=== PATIENT | male | born 1955 | race Caucasian/White ===

== ENCOUNTER → 2016-09-30 | Outpatient (CLI) | payer BC ==
[~2016-09-30] MED LIST: AMARYL4 MG PO; AMITRIPTYLINE H25 M1 PO; ATORVASTATIN; BACTRIM DS 8001 TAB PO; CRESTOR5 MG PO; CYMBALTA 30MG30 MG PO; DESYREL DIVIDO150 M1 PO; ESCITALOPRAM; GLUCOPHAGE500 MG/TAB PO; GLYBURIDE MICRON3 MG PO; LEVITRA20 MG PO; NORCO 325 MG-7.1 TAB PO; PROTONIX I40 MG/VIAL PO; SYNTHROID0.05 MG/TA PO; VICODIN 5/5001 UDTAB PO; VICTOZA6 MG/ML SC; WELLBUTRIN XL150 MG PO; [UNRECOGNIZED DRUG - OTHER]
== END ==
LOC: BHSO 15:37
DX: F33.42 Major depressive disorder, recurrent, in full remission (principal)

== ENCOUNTER → 2017-03-15 | Outpatient (CLI) | payer BC | LOC: BHSO 15:29 | DX: F33.41 Major depressive disorder, recurrent, in partial remission (principal) ==

== ENCOUNTER → 2017-10-24 | Outpatient (CLI) | payer BC | LOC: BHSO 11:41 | DX: F06.32 Mood disorder due to known physiological condition with major depressive-like episode (principal) | CPT/HCPCS: G0463 ==

== ENCOUNTER → 2017-12-08 | Outpatient (CLI) | payer BC ==
[~2017-12-08] MED LIST changes: +BELSOMRA10 MG PO; +COLACE 100100 MG/CAP PO; +COMPAZINE 110 MG/TAB PO; +GLUCOTROL 5M5 MG/TAB PO; +LINZESS290CAP PO; +PROBIOTIC FORMU1 CAP PO; +PROTONIX 40MG T40 MG PO; +VICTOZA6 MG/ML SQ; +WELLBUTRIN XL300 M1 PO; +ZOLOFT 100MG100 MG PO
== END ==
LOC: COL.RAD 07:23
DX: K58.9 Irritable bowel syndrome, unspecified (principal); B19.10 Unspecified viral hepatitis B without hepatic coma
CPT/HCPCS: A9541

== ENCOUNTER 2017-12-09 06:40 | Day surgery (SDC) | payer BC ==
[~2017-12-09] VITALS: Ht 175.3 cm; Wt 70.0 kg
[~2017-12-09 06:40] MED LIST changes: -BELSOMRA10 MG PO; -COLACE 100100 MG/CAP PO; -COMPAZINE 110 MG/TAB PO; -GLUCOTROL 5M5 MG/TAB PO; -LINZESS290CAP PO; -PROBIOTIC FORMU1 CAP PO; -PROTONIX 40MG T40 MG PO; -VICTOZA6 MG/ML SQ; -WELLBUTRIN XL300 M1 PO; -ZOLOFT 100MG100 MG PO
[2017-12-09] MEDS ORDERED: WELLBUTRIN XL300 M1 PO (06:58)
[2017-12-09] MEDS ORDERED: GLUCOTROL 5M5 MG/TAB PO (06:59)
[2017-12-09] MEDS ORDERED: SYNTHROID0.05 MG/TA PO (07:00)
[2017-12-09] MEDS ORDERED: ZOLOFT 100MG100 MG PO (07:00)
[2017-12-09] MEDS ORDERED: LINZESS290CAP PO (07:01)
[2017-12-09] MEDS ORDERED: PROTONIX 40MG T40 MG PO (07:01)
[2017-12-09] MEDS ORDERED: COLACE 100100 MG/CAP PO (07:02)
[2017-12-09] MEDS ORDERED: PROBIOTIC FORMU1 CAP PO (07:02)
[2017-12-09] MEDS ORDERED: VICTOZA6 MG/ML SQ (07:04)
[2017-12-09] MEDS ORDERED: BELSOMRA10 MG PO (07:04)
[2017-12-09 07:05] VITALS: BP 122/91; PULSE 88; TEMP 98.2
[2017-12-09] MEDS ORDERED: COMPAZINE 110 MG/TAB PO (07:05)
[2017-12-09 08:15] VITALS: BP 124/77; PULSE 77; TEMP 98.4
[2017-12-09 08:30] VITALS: BP 108/69; PULSE 70
[2017-12-09 08:45] VITALS: BP 112/83; PULSE 72
== END 2017-12-09 09:05 | disposition home or self-care (01) ==
LOC: SDCO 06:40
DX: K58.1 Irritable bowel syndrome with constipation (principal); K21.9 Gastro-esophageal reflux disease without esophagitis; R11.2 Nausea with vomiting, unspecified; K29.30 Chronic superficial gastritis without bleeding; E11.9 Type 2 diabetes mellitus without complications; Z79.84 Long term (current) use of oral hypoglycemic drugs; I10 Essential (primary) hypertension; K75.81 Nonalcoholic steatohepatitis (NASH); I49.9 Cardiac arrhythmia, unspecified; F32.9 Major depressive disorder, single episode, unspecified
CPT/HCPCS: J2250; J3010; J7030

== ENCOUNTER → 2018-01-26 | Outpatient (CLI) | payer BC ==
[~2018-01-26] MED LIST changes: +BELSOMRA10 MG PO; +COLACE 100100 MG/CAP PO; +COMPAZINE 110 MG/TAB PO; +FLEXERIL 1010 MG/TAB PO; +GLUCOTROL 5M5 MG/TAB PO; +LINZESS290CAP PO; +NORCO 325 MG-51 TAB PO; +PROBIOTIC FORMU1 CAP PO; +PROTONIX 40MG T40 MG PO; +VICTOZA6 MG/ML SQ; +WELLBUTRIN XL300 M1 PO; +ZOLOFT 100MG100 MG PO
== END ==
LOC: BHSO 14:14
DX: F33.42 Major depressive disorder, recurrent, in full remission (principal)
CPT/HCPCS: G0463

== ENCOUNTER 2018-01-27 20:49 | Emergency (ER) | payer BC ==
[~2018-01-27] VITALS: Ht 172.7 cm; Wt 77.3 kg
[~2018-01-27 20:49] MED LIST changes: -FLEXERIL 1010 MG/TAB PO; -NORCO 325 MG-51 TAB PO
[2018-01-27 20:52] VITALS: TEMP 97.9
[2018-01-27 21:31] LABS: HEMATOCRIT 42.4 % (42.0-52.0); HEMOGLOBIN 14.4 g/dl (13.5-18.0); MEAN CELL VOLUME 89 fl (80.0-100.0); MEAN CORPUSCULAR HEMOGLOBIN 30 pg (27.0-31.0); MEAN CORPUSCULAR HGB CONC 34 g/dl (33.0-37.0); MEAN PLATELET VOLUME 9.3 fl (7.4-10.4); PLATELET COUNT 167 K/mm3 (130-400); RED BLOOD COUNT 4.78 M/mm3 (4.20-5.60); REDCELL DISTRIBUTION WIDTH-CV 12.2 % (11.5-14.5)
[2018-01-27 21:42] LABS: ALANINE AMINOTRANSFERASE 48 U/L (21-72); ALBUMIN 4.4 gm/dL (3.5-5.0); ALKALINE PHOSPHATASE 61 U/L (50-136); ANION GAP 11 mmol/L (7-16); AST,SGOT 44 U/L (15-37); BILIRUBIN,TOTAL 0.4 mg/dL (0.0-1.0); BLOOD UREA NITROGEN 12 mg/dL (9-20); CALCIUM 9.2 mg/dL (8.4-10.2); CARBON DIOXIDE 28 mmol/L (22-30); CHLORIDE 100 mmol/L (98-107); CREATININE, serum 0.99 mg/dL (0.66-1.25); GLUCOSE 120 mg/dL (74-106); POTASSIUM 4.6 mmol/L (3.4-5.0); SODIUM 139 mmol/L (137-145); TOTAL PROTEIN 7.2 gm/dL (6.4-8.2)
[2018-01-27 21:46] LABS: ALCOHOL(ethanol),MEDICAL < 10 mg/dL
[2018-01-27] MEDS ORDERED: NORCO 325 MG-51 TAB PO (22:27)
[2018-01-27] MEDS ORDERED: FLEXERIL 1010 MG/TAB PO (22:27)
[2018-01-27 22:33] VITALS: BP 134/74; PULSE 76
== END 2018-01-27 22:58 | disposition home or self-care (01) ==
LOC: COL.ER 20:49
PROVIDERS: Physician Assistant
DX: S40.011A Contusion of right shoulder, initial encounter (principal); M62.838 Other muscle spasm; Z88.0 Allergy status to penicillin; Z79.84 Long term (current) use of oral hypoglycemic drugs; W01.10XA Fall on same level from slipping, tripping and stumbling with subsequent striking against unspecified object, initial encounter; Y92.009 Unspecified place in unspecified non-institutional (private) residence as the place of occurrence of the external cause

== ENCOUNTER → 2018-08-10 | Outpatient (CLI) | payer BC ==
[~2018-08-10] MED LIST changes: +FLEXERIL 1010 MG/TAB PO; +NORCO 325 MG-51 TAB PO
== END ==
LOC: BHSO 15:38
DX: F33.42 Major depressive disorder, recurrent, in full remission (principal)
CPT/HCPCS: G0463

== ENCOUNTER → 2019-03-07 | Outpatient (CLI) | payer BC | LOC: BHSO 08:17 | DX: F33.42 Major depressive disorder, recurrent, in full remission (principal) | CPT/HCPCS: G0463 ==

== ENCOUNTER → 2019-12-10 | Outpatient (CLI) | payer MEDICARE, BC | LOC: BHSO 09:45 | DX: F33.42 Major depressive disorder, recurrent, in full remission (principal) | CPT/HCPCS: G0463 ==

== ENCOUNTER → 2020-03-10 | Outpatient (CLI) | payer MEDICARE, BC | LOC: BHSO 09:51 | DX: F33.42 Major depressive disorder, recurrent, in full remission (principal) | CPT/HCPCS: G0463 ==

== ENCOUNTER 2020-11-21 08:03 | Day surgery (SDC) | payer MEDICARE, BC ==
[~2020-11-21] VITALS: Ht 172.7 cm; Wt 86.6 kg
[2020-11-21] MEDS ORDERED: REQUIP 0.5MG0.5 MG PO (08:30)
[2020-11-21] MEDS ORDERED: AMBIEN 10MG10 MG PO (08:30)
[2020-11-21] MEDS ORDERED: NEURONTIN600 MG/TAB PO (08:31)
[2020-11-21] MEDS ORDERED: CRESTOR20 MG PO (08:32)
[2020-11-21] MEDS ORDERED: FARXIGA10 PO (08:32)
[2020-11-21] MEDS ORDERED: NOVLOG SQ (08:33)
[2020-11-21] MEDS ORDERED: ACTOS30 MG PO (08:34)
[2020-11-21] MEDS ORDERED: NATURAL IRON65 MG PO (08:35)
[2020-11-21] MEDS ORDERED: COLACE 100100 MG/CAP PO (08:35)
[2020-11-21 08:50] VITALS: BP 126/78; PULSE 66; TEMP 98
[2020-11-21 10:00] VITALS: BP 127/71; PULSE 61
--- NOTE | 2020-11-21 10:00 | NUR ---
Patient checked into [facility] Rm3 via endo staff nurse.
--- NOTE | 2020-11-21 10:10 | NUR ---
Patient given juice and muffin. Vitals stable. Patient's spouse at chair side.
[2020-11-21 10:15] VITALS: BP 134/72; PULSE 64
--- NOTE | 2020-11-21 10:15 | NUR ---
Dr Ravi into see patient at this time to go over results.
[2020-11-21 10:30] VITALS: BP 134/75; PULSE 60
--- NOTE | 2020-11-21 10:30 | NUR ---
Patient tolerated food and drink without any nausea or vomiting. Vitals stable.
--- NOTE | 2020-11-21 11:00 | NUR ---
Dismissal instructions gone over with patient and patient's spouse. Both verbalize understanding and all questions answered.
--- NOTE | 2020-11-21 11:05 | NUR ---
Patient discharged to private vehicle at patient enterance via wheelchair without any complications. Patient and family leave thanking staff for services.
== END 2020-11-21 11:05 | disposition home or self-care (01) ==
LOC: SDCO 08:03
DX: K21.9 Gastro-esophageal reflux disease without esophagitis (principal); K31.7 Polyp of stomach and duodenum; K92.1 Melena; K58.1 Irritable bowel syndrome with constipation; D50.9 Iron deficiency anemia, unspecified; E78.5 Hyperlipidemia, unspecified; G47.33 Obstructive sleep apnea (adult) (pediatric); M19.90 Unspecified osteoarthritis, unspecified site; G25.81 Restless legs syndrome; E11.9 Type 2 diabetes mellitus without complications; E03.9 Hypothyroidism, unspecified; M10.9 Gout, unspecified; F32.9 Major depressive disorder, single episode, unspecified; F41.9 Anxiety disorder, unspecified; Z98.52 Vasectomy status; Z99.89 Dependence on other enabling machines and devices; Z79.890 Hormone replacement therapy; Z79.899 Other long term (current) drug therapy; Z79.4 Long term (current) use of insulin; Z82.49 Family history of ischemic heart disease and other diseases of the circulatory system; Z80.42 Family history of malignant neoplasm of prostate
CPT/HCPCS: J2704; J7030

== ENCOUNTER 2021-07-24 22:04 | Observation (INO) | payer MEDICARE, BC ==
[~2021-07-24] VITALS: Ht 172.7 cm; Wt 82.6 kg
[~2021-07-24 22:04] MED LIST changes: +ACTOS30 MG PO; +AMBIEN 10MG10 MG PO; +CRESTOR20 MG PO; +FARXIGA10 PO; +NATURAL IRON65 MG PO; +NEURONTIN600 MG/TAB PO; +NOVLOG SQ; +REQUIP 0.5MG0.5 MG PO
[2021-07-24 23:04] LABS: BASO % 0.7 % (0.0-2.0); EOS # 0.2 K/mm3 (0.0-0.7); EOS % 3.5 % (0.0-4.0); GRAN # 2.6 K/mm3 (1.4-6.5); GRAN % 57.8 % (42.2-75.2); HEMOGLOBIN 17.5 g/dl (13.5-18.0); LYMPH # 1.3 K/mm3 (1.2-3.4); LYMPH % 28.2 % (20.0-51.0); MEAN CELL VOLUME 84 fl (80.0-100.0); MEAN CORPUSCULAR HEMOGLOBIN 27 pg (27-31); MEAN CORPUSCULAR HGB CONC 33 g/dl (33.0-37.0); MEAN PLATELET VOLUME 8.9 fl (7.4-10.4); MONO # 0.4 K/mm3 (0.1-0.6); MONO % 9.6 % (1.7-9.3); PLATELET COUNT 154 K/mm3 (130-400); RED BLOOD COUNT 6.38 M/mm3 (4.20-5.60); REDCELL DISTRIBUTION WIDTH-CV 19.2 % (11.5-14.5)
[2021-07-24 23:10] LABS: HEMATOCRIT 53.3 % (42.0-52.0)
[2021-07-24 23:24] LABS: ALANINE AMINOTRANSFERASE 33 U/L (0-55); ALBUMIN 4.5 gm/dL (3.4-4.8); ALKALINE PHOSPHATASE 64 U/L (40-150); ANION GAP 13 mmol/L (7-16); AST,SGOT 33 U/L (5-34); BILIRUBIN,TOTAL 0.5 mg/dL (0.2-1.2); BLOOD UREA NITROGEN 11 mg/dL (8-26); CALCIUM 9.5 mg/dL (8.4-10.2); CARBON DIOXIDE 23 mmol/L (23-31); CHLORIDE 105 mmol/L (98-107); CREATININE, serum 1.13 mg/dL (0.72-1.25); GLUCOSE 222 mg/dL (70-99); POTASSIUM 3.8 mmol/L (3.5-4.5); SODIUM 141 mmol/L (136-145); TOTAL PROTEIN 7.6 gm/dL (6.2-8.1)
[2021-07-24 23:28] LABS: ALCOHOL(ethanol),MEDICAL < 10 mg/dL (0-10)
[2021-07-24 23:30] LABS: TROPONIN-I < 0.010 ng/mL (0.00-0.033)
[2021-07-24 23:55] LABS: TRICYCLIC ANTIDEPRESS URINE NEGATIVE
[2021-07-25 00:28] LABS: COLLECTION METHOD CLEAN CATCH
[2021-07-25 00:34] LABS: PH 6 (5-8); SQUAMOUS EPITHELIAL None Seen /hpf (0-10); URINE APPEARANCE Clear (CLEAR/HAZY); URINE BACTERIA None Seen /hpf (NONE SEEN); URINE BILIRUBIN Negative (NEGATIVE); URINE BLOOD 1+ (NEGATIVE); URINE COLOR Straw (YELLOW); URINE GLUCOSE 3+ (NEGATIVE); URINE KETONE Negative (NEGATIVE); URINE LEUKOCYTE ESTERASE Negative (NEGATIVE); URINE NITRATE Negative (NEGATIVE); URINE PROTEIN(semi-quant) Negative (NEGATIVE); URINE RBC 0-2 /hpf (0-2); URINE UROBILINOGEN Negative (NEGATIVE)
[2021-07-25] MEDS ORDERED: FLOMAX 0.40.4 MG/CAP PO (00:53)
[2021-07-25] MEDS ORDERED: GLUCOPHAGE XR500 M1 PO (00:54)
[2021-07-25] MEDS ORDERED: WELLBUTRIN SR150 M1 PO (00:57)
[2021-07-25] MEDS ORDERED: WELLBUTRIN XL150 MG PO (00:58)
[2021-07-25] MEDS ORDERED: NOVOLOG FLEX100 U/ML SQ (01:01)
[2021-07-25 01:51] LABS: MAGNESIUM 2.1 mg/dL (1.6-2.6); PHOSPHOROUS 3.2 mg/dL (2.3-4.7)
[2021-07-25 02:11] LABS: TSH w REFLEX 3.48 uIU/mL (0.350-4.940)
[2021-07-25 03:18] VITALS: BP 150/86; PULSE 62; TEMP 98
--- NOTE | 2021-07-25 07:15 | NUR ---
PT ARRIVED TO MEDICAL FLOOR [id number] TO [id number]. PT CAME IN FOR ALT. MENTAL STATUS, HOWEVER PT WAS A&O X4 FOR ME. PT COMPLAINED OF FEELING LOOPY AND UNABLE TO REMEMBER WHAT HAPPEN LAST NIGHT. VSS, O2 RA. PT DENIES CHEST PAIN, SOB, N,V,D, GENERAL PAIN OR DIZZINESS. PT ALSO UP TO THE RESTROOM, BUT HIS GAIT WAS VERY UNSTEADY. PT PASSED HIS NEURO-CHECKS. ADMISSION ASSESSMENT AND MED REC COMPLETE. PT ORIENTED TO ROOM AND HOSPITAL POLICY, I'M NOT SURE HE WILL BE ABLE TO REMEMBER THOUGH. PT VERBALIZED UNDERSTANDING. WILL CHECK ON PT OFTEN. PT EXPRESSED NO OTHER NEEDS AT THIS TIME. CALL LIGHT WITHIN REACH.
[2021-07-25 07:40] VITALS: BP 152/83; PULSE 59; TEMP 98.1
--- NOTE | 2021-07-25 08:35 | NUR ---
Patient laying in bed upon entering the room. Answered all orientation questions correctly (Location, president, name and ). is at the bedside and says the patient is back to his baseline and is much better than when she brought him in last night. Patient asked why he was here and does not remember anything that happened last night. Reports that he slept well and denies any pain.
[2021-07-25 09:13] LABS: BASO % 0.6 % (0.0-2.0); EOS # 0.2 K/mm3 (0.0-0.7); EOS % 3.6 % (0.0-4.0); GRAN # 3.1 K/mm3 (1.4-6.5); GRAN % 61.5 % (42.2-75.2); HEMOGLOBIN 17.6 g/dl (13.5-18.0); LYMPH # 1.3 K/mm3 (1.2-3.4); LYMPH % 25.4 % (20.0-51.0); MEAN CELL VOLUME 85 fl (80.0-100.0); MEAN CORPUSCULAR HEMOGLOBIN 28 pg (27-31); MEAN CORPUSCULAR HGB CONC 33 g/dl (33.0-37.0); MEAN PLATELET VOLUME 9.8 fl (7.4-10.4); MONO # 0.4 K/mm3 (0.1-0.6); MONO % 8.7 % (1.7-9.3); PLATELET COUNT 166 K/mm3 (130-400); RED BLOOD COUNT 6.35 M/mm3 (4.20-5.60); REDCELL DISTRIBUTION WIDTH-CV 19.5 % (11.5-14.5)
[2021-07-25 09:17] LABS: HEMATOCRIT 54.2 % (42.0-52.0)
--- NOTE | 2021-07-25 10:46 | NUR ---
SW met with patient to complete intake. Patient states that he lives in [place] with is Nadiya [phone]. Patient states that he does not utilize DME and is independent with ADL's. Patient provides his PCP is Dr. Joel, pharmacy is [facility]. Patient provides that he does not have anyone specifically appointed as his DPOA and does not wish to do so at this current time. Patient's plan is to return to his home up on discharge and has no questions or concerns with doing so. SW will continue to follow. DC plan: home
[2021-07-25 11:45] VITALS: BP 151/96; PULSE 61; TEMP 98.1
--- NOTE | 2021-07-25 12:59 | NUR ---
Hooker Operator visited briefly with patient while spouse was in room. Nothing else needed at this time.
--- NOTE | 2021-07-25 15:08 | NUR ---
Patient discharged home w/ . Escorted out by PCT. Patient stable, A&Ox4. IV and telemetry discontinued by this RN.
== END 2021-07-25 14:40 | disposition home or self-care (01) ==
LOC: COL.ER 22:04 → MEDICAL 07-25 01:21
PROVIDERS: Emergency Medicine; Nurse Practitioner Family
DX: G92.8 Other toxic encephalopathy (principal); T42.6X1A Poisoning by other antiepileptic and sedative-hypnotic drugs, accidental (unintentional), initial encounter; E78.5 Hyperlipidemia, unspecified; E11.40 Type 2 diabetes mellitus with diabetic neuropathy, unspecified; E03.9 Hypothyroidism, unspecified; G25.81 Restless legs syndrome; G47.00 Insomnia, unspecified; N40.0 Benign prostatic hyperplasia without lower urinary tract symptoms; M19.90 Unspecified osteoarthritis, unspecified site; G89.29 Other chronic pain; F32.A Depression, unspecified; Z79.84 Long term (current) use of oral hypoglycemic drugs; Z79.899 Other long term (current) drug therapy; Z79.890 Hormone replacement therapy; Z20.822 Contact with and (suspected) exposure to COVID-19
CPT/HCPCS: G0378; J1815; J7030

== ENCOUNTER 2022-03-14 23:22 | Emergency (ER) | payer MEDICARE, BC ==
[~2022-03-14] VITALS: Ht 172.7 cm; Wt 82.7 kg
[~2022-03-14 23:22] MED LIST changes: +FLOMAX 0.40.4 MG/CAP PO; +GLUCOPHAGE XR500 M1 PO; +NOVOLOG FLEX100 U/ML SQ; +WELLBUTRIN SR150 M1 PO
[2022-03-14 23:50] LABS: BASO # 0.1 K/mm3 (0.0-0.2); BASO % 0.9 % (0.0-2.0); EOS # 0.2 K/mm3 (0.0-0.7); EOS % 2.6 % (0.0-4.0); GRAN % 51.1 % (42.2-75.2); HEMATOCRIT 50.8 % (42.0-52.0); HEMOGLOBIN 17.9 g/dl (13.5-18.0); LYMPH # 2.1 K/mm3 (1.2-3.4); LYMPH % 36.6 % (20.0-51.0); MEAN CELL VOLUME 92 fl (80.0-100.0); MEAN CORPUSCULAR HEMOGLOBIN 33 pg (27-31); MEAN CORPUSCULAR HGB CONC 35 g/dl (33.0-37.0); MEAN PLATELET VOLUME 9.2 fl (7.4-10.4); MONO # 0.5 K/mm3 (0.1-0.6); MONO % 7.9 % (1.7-9.3); PLATELET COUNT 153 K/mm3 (130-400); REDCELL DISTRIBUTION WIDTH-CV 12.6 % (11.5-14.5)
[2022-03-15 00:11] LABS: ALBUMIN 4.7 gm/dL (3.4-4.8); BILIRUBIN,TOTAL 0.7 mg/dL (0.2-1.2); CALCIUM 9.8 mg/dL (8.4-10.2); CREATININE, serum 1.06 mg/dL (0.72-1.25); POTASSIUM 4.6 mmol/L (3.5-4.5); TOTAL PROTEIN 7.9 gm/dL (6.2-8.1)
[2022-03-15 00:59] LABS: COLLECTION METHOD CLEAN CATCH
[2022-03-15 01:23] LABS: SQUAMOUS EPITHELIAL None Seen /hpf (0-10); URINE BACTERIA None Seen /hpf (NONE SEEN)
[2022-03-15 01:25] LABS: PH 6.5 (5.0-8.5); URINE APPEARANCE Clear (CLEAR/HAZY); URINE BLOOD TRACE-INTACT (NEGATIVE); URINE COLOR Yellow (YELLOW); URINE GLUCOSE 3+ (NEGATIVE); URINE KETONE Negative (NEGATIVE); URINE NITRATE Negative (NEGATIVE); URINE PROTEIN(semi-quant) Negative (NEGATIVE); URINE UROBILINOGEN 0.2 E.U/dL (0.2-1.0)
[2022-03-15 01:49] VITALS: BP 157/83; PULSE 58; TEMP 98
[2022-03-16] MEDS ORDERED: NORCO 325 MG-51 TAB PO (04:10)
[2022-03-16] MEDS ORDERED: ONGLYZA5 MG PO (04:14)
[2022-03-16] MEDS ORDERED: PROTONIX 40MG T40 MG PO (04:15)
[2022-03-16] MEDS ORDERED: FARXIGA5 PO (04:16)
[2022-03-16] MEDS ORDERED: LUNESTA2 MG PO (04:17)
== END 2022-03-15 01:55 | disposition home or self-care (01) ==
LOC: COL.ER 23:22
PROVIDERS: Emergency Medicine
DX: N20.0 Calculus of kidney (principal)
CPT/HCPCS: J1885; J2270; J2405; J3010; Q9967

== ENCOUNTER 2022-03-16 00:02 | Observation (INO) | payer MEDICARE, BC ==
[~2022-03-16] VITALS: Ht 172.7 cm; Wt 80.9 kg
[2022-03-16 01:56] LABS: BASO % 0.3 % (0.0-2.0); EOS # 0.1 K/mm3 (0.0-0.7); GRAN # 3.9 K/mm3 (1.4-6.5); GRAN % 63.8 % (42.2-75.2); LYMPH # 1.6 K/mm3 (1.2-3.4); MEAN CELL VOLUME 91 fl (80.0-100.0); MEAN CORPUSCULAR HEMOGLOBIN 32 pg (27-31); MEAN CORPUSCULAR HGB CONC 35 g/dl (33.0-37.0); MEAN PLATELET VOLUME 9.6 fl (7.4-10.4); MONO # 0.5 K/mm3 (0.1-0.6); MONO % 7.7 % (1.7-9.3); PLATELET COUNT 164 K/mm3 (130-400); RED BLOOD COUNT 5.73 M/mm3 (4.20-5.60); REDCELL DISTRIBUTION WIDTH-CV 12.6 % (11.5-14.5)
[2022-03-16 01:57] LABS: HEMOGLOBIN 18.1 g/dl (13.5-18.0)
[2022-03-16 02:03] LABS: ALBUMIN 5.1 gm/dL (3.4-4.8); BILIRUBIN,TOTAL 1.2 mg/dL (0.2-1.2); CALCIUM 10.5 mg/dL (8.4-10.2); CREATININE, serum 1.16 mg/dL (0.72-1.25); POTASSIUM 3.8 mmol/L (3.5-4.5); TOTAL PROTEIN 8.3 gm/dL (6.2-8.1)
[2022-03-16 03:16] LABS: COLLECTION METHOD CLEAN CATCH
[2022-03-16 03:26] LABS: PH 7.5 (5-8); SQUAMOUS EPITHELIAL None Seen /hpf (0-10); URINE APPEARANCE Clear (CLEAR/HAZY); URINE BACTERIA None Seen /hpf (NONE SEEN); URINE BLOOD TRACE-INTACT (NEGATIVE); URINE COLOR Yellow (YELLOW); URINE GLUCOSE 3+ (NEGATIVE); URINE KETONE 4+ (NEGATIVE); URINE NITRATE Negative (NEGATIVE); URINE PROTEIN(semi-quant) Negative (NEGATIVE); URINE UROBILINOGEN 0.2 (NEGATIVE)
[2022-03-16] MEDS ORDERED: NORCO 325 MG-51 TAB PO (04:10)
[2022-03-16] MEDS ORDERED: ONGLYZA5 MG PO (04:14)
[2022-03-16] MEDS ORDERED: PROTONIX 40MG T40 MG PO (04:15)
[2022-03-16] MEDS ORDERED: FARXIGA5 PO (04:16)
[2022-03-16] MEDS ORDERED: LUNESTA2 MG PO (04:17)
[2022-03-16 04:51] LABS: TRICYCLIC ANTIDEPRESS URINE NEGATIVE
--- NOTE | 2022-03-16 06:13 | NUR ---
pt arrived to room 349 from ED per bed, settled into room, IVF infusing per PIV in RFA @100cc/hr, on 2L O2 per NC, report given to ABHILASH Cash.
[2022-03-16 07:30] VITALS: BP 153/95; PULSE 95; TEMP 97.6
[2022-03-16 11:42] VITALS: BP 151/75; PULSE 101; TEMP 98.2
[2022-03-16 16:18] VITALS: BP 143/77; PULSE 89; TEMP 97.8
--- NOTE | 2022-03-16 17:31 | NUR ---
KINGA memt with patient to complete intake. Patient lives at home with his Nadiya ([phone]) in [facility]. He is fully independent with his ADL's with no DME needs. PCP is Josefa Mann and utilizes [facility]. Patient reports he has a DPOA-HC/Living Will drafted and is working on completing it. Discharge plan:Home
[2022-03-16 19:57] VITALS: BP 141/67; PULSE 78; TEMP 99
[2022-03-17 00:04] VITALS: BP 138/80; PULSE 63; TEMP 98.6
--- NOTE | 2022-03-17 01:28 | NUR ---
PATIENT IN BED ON ROOM ENTRY. ALERT AND ORIENTED. HS MEDS PER EMAR. C/O MILD R FLANK PAIN AND PRN TORADOL WAS GIVEN. DENIES ADDITIONAL NEEDS. CALL LIGHT IN REACH.
[2022-03-17 04:26] VITALS: BP 142/67; PULSE 79; TEMP 98.3
[2022-03-17 06:36] LABS: BASO % 0.4 % (0.0-2.0); EOS # 0.1 K/mm3 (0.0-0.7); GRAN # 2.7 K/mm3 (1.4-6.5); GRAN % 54.2 % (42.2-75.2); HEMATOCRIT 48.4 % (42.0-52.0); HEMOGLOBIN 16.2 g/dl (13.5-18.0); LYMPH # 1.6 K/mm3 (1.2-3.4); LYMPH % 33.2 % (20.0-51.0); MEAN CELL VOLUME 95 fl (80.0-100.0); MEAN CORPUSCULAR HEMOGLOBIN 32 pg (27-31); MEAN CORPUSCULAR HGB CONC 34 g/dl (33.0-37.0); MONO # 0.5 K/mm3 (0.1-0.6); PLATELET COUNT 146 K/mm3 (130-400); RED BLOOD COUNT 5.11 M/mm3 (4.20-5.60); REDCELL DISTRIBUTION WIDTH-CV 12.6 % (11.5-14.5)
[2022-03-17 06:47] LABS: CALCIUM 8.5 mg/dL (8.4-10.2); CREATININE, serum 0.99 mg/dL (0.72-1.25)
[2022-03-17 07:22] VITALS: BP 140/62; PULSE 62; TEMP 98.2
--- NOTE | 2022-03-17 09:47 | NUR ---
Initial visit; Patient thanked [employer] for looking in on him and offering him God's blessings and will keep him in her prayers.
--- NOTE | 2022-03-17 10:13 | NUR ---
PATIENT TO DISCHARGE LATER TODAY AFTER EATING REGULAR LUNCH.
[2022-03-17 11:53] VITALS: BP 138/64; PULSE 58; TEMP 97.6
--- NOTE | 2022-03-17 14:20 | NUR ---
REVIWED DISCHARGE INSTRUCTIONS WITH PT AND SPOUSE QUESTIONS SOLICITED AND ANSWERED. PT LEFT FLOOR AMBULATORY WITH STAFF.
== END 2022-03-17 14:26 | disposition home or self-care (01) ==
LOC: COL.ER 00:02 → SURG 04:02
PROVIDERS: Emergency Medicine; Physician Assistant; Student in an Organized Health Care Education/Training Program; ADMIT Internal Medicine
DX: R11.2 Nausea with vomiting, unspecified (principal); R10.31 Right lower quadrant pain; J96.01 Acute respiratory failure with hypoxia; G47.33 Obstructive sleep apnea (adult) (pediatric); E78.5 Hyperlipidemia, unspecified; E11.40 Type 2 diabetes mellitus with diabetic neuropathy, unspecified; E03.9 Hypothyroidism, unspecified; K21.9 Gastro-esophageal reflux disease without esophagitis; F32.A Depression, unspecified; M19.90 Unspecified osteoarthritis, unspecified site; G25.81 Restless legs syndrome; R91.1 Solitary pulmonary nodule; G89.29 Other chronic pain; Z79.890 Hormone replacement therapy; Z79.899 Other long term (current) drug therapy; Z79.4 Long term (current) use of insulin
CPT/HCPCS: G0378; J1650; J1815; J1885; J2270; J2405; J2550; J2765; J3010; J7030; J7120

== ENCOUNTER 2022-11-21 23:38 | Inpatient (IN) | payer MEDICARE, BC ==
[~2022-11-21] VITALS: Ht 172.7 cm; Wt 86.2 kg
[~2022-11-21 23:38] MED LIST changes: +FARXIGA5 PO; +LUNESTA2 MG PO; +ONGLYZA5 MG PO
[2022-11-22] VITALS (960 sets, daily range): BP systolic 112–147; BP diastolic 62–89; PULSE 66–96; TEMP 97.3–98.6; O2SAT 74–100
[2022-11-22] MEDS ORDERED: BENADRYL50 MG PO (01:33)
[2022-11-22 01:35] LABS: BASO % 0.4 % (0.0-2.0); EOS % 0.1 % (0.0-4.0); GRAN # 9.4 K/mm3 (1.4-6.5); GRAN % 84.3 % (42.2-75.2); LYMPH # 1.1 K/mm3 (1.2-3.4); LYMPH % 9.6 % (20.0-51.0); MEAN CELL VOLUME 96 fl (80.0-100.0); MEAN CORPUSCULAR HGB CONC 33 g/dl (33.0-37.0); MEAN PLATELET VOLUME 9.8 fl (7.4-10.4); MONO # 0.6 K/mm3 (0.1-0.6); MONO % 5.2 % (1.7-9.3); PLATELET COUNT 231 K/mm3 (130-400); RED BLOOD COUNT 6.29 M/mm3 (4.20-5.60); REDCELL DISTRIBUTION WIDTH-CV 14.3 % (11.5-14.5)
[2022-11-22] MEDS ORDERED: HCTZ12.5TAB PO (01:35)
[2022-11-22 01:36] LABS: HEMATOCRIT 60.2 % (42.0-52.0); HEMOGLOBIN 19.6 g/dl (13.5-18.0); MEAN CORPUSCULAR HEMOGLOBIN 31 pg (27-31)
[2022-11-22] MEDS ORDERED: ASPIRIN 81M81 MG/TA2 PO (01:37)
[2022-11-22 02:21] LABS: ACETONE,SERUM MODERATE
[2022-11-22 02:24] LABS: ALANINE AMINOTRANSFERASE 37 U/L (0-55); ALBUMIN 4.7 gm/dL (3.4-4.8); ALKALINE PHOSPHATASE 64 U/L (40-150); ANION GAP 27 mmol/L (7-16); AST,SGOT 43 U/L (5-34); BILIRUBIN,TOTAL 0.8 mg/dL (0.2-1.2); BLOOD UREA NITROGEN 40 mg/dL (8-26); CALCIUM 9.4 mg/dL (8.4-10.2); CHLORIDE 102 mmol/L (98-107); CREATININE, serum 1.65 mg/dL (0.72-1.25); GLUCOSE 153 mg/dL (70-99); POTASSIUM 4.7 mmol/L (3.5-4.5); SODIUM 138 mmol/L (136-145); TOTAL PROTEIN 8.6 gm/dL (6.2-8.1)
[2022-11-22 02:25] LABS: CARBON DIOXIDE 9 mmol/L (23-31)
[2022-11-22 02:31] LABS: TROPONIN-I < 0.010 ng/mL (0.00-0.033)
[2022-11-22 02:37] LABS: COLLECTION METHOD CLEAN CATCH
[2022-11-22 02:41] LABS: MUCOUS Present (NOT PRESENT); SQUAMOUS EPITHELIAL None Seen /hpf (0-10); URINE BACTERIA None Seen /hpf (NONE SEEN); URINE RBC 0-2 /hpf (0-2)
[2022-11-22 02:42] LABS: URINE APPEARANCE Clear (CLEAR/HAZY); URINE COLOR Yellow (YELLOW)
[2022-11-22 02:43] LABS: URINE BLOOD Negative (NEGATIVE); URINE GLUCOSE 2+ (NEGATIVE); URINE KETONE 4+ (NEGATIVE); URINE NITRATE Negative (NEGATIVE); URINE PROTEIN(semi-quant) 2+ (NEGATIVE); URINE UROBILINOGEN 0.2 E.U/dL (0.2-1.0)
[2022-11-22] MEDS ORDERED: TRULICITY1.5 MG/0.5 (06:06)
[2022-11-22] MEDS ORDERED: MELATONIN5 M1 PO (06:07)
[2022-11-22] MEDS ORDERED: MAGNESIUM200 MG (06:07)
[2022-11-22] MEDS ORDERED: VALERIAN ROOT (06:09)
--- NOTE | 2022-11-22 06:50 | NUR ---
RECEIVED REPORT FROM ABHILASH DUVAL FROM ED AROUND 0325. PT ARRIVED TO UNIT AT 0425. PT WAS ABLE TO WALK FROM ED BED TO ICU BED AND WAS STABLE. ORIENTED PT TO ROOM, CALL LIGHT, AND ICU RULES. DID PHYSICAL AND INTAKE ASSESSMENT ON PT. PT GAVE A LIST OF MEDS. HE TAKES AT HOME, HOWEVER THE MED LIST DOES NOT HAVE THE DOSE AND THE FREQUENCY HE TAKES THEM AND COULDN'T REMEMBER THE DOSES. PT HAS BEEN RESTING FOR A COUPLE OF HOURS.
--- NOTE | 2022-11-22 06:54 | NUR ---
PT'S VITALS ARE STABLE AT THIS TIME. WILL GIVE REPORT TO DAY SHIFT NURSE.
[2022-11-22 06:57] LABS: CALCIUM 8.9 mg/dL (8.4-10.2); CREATININE, serum 1.61 mg/dL (0.72-1.25); POTASSIUM 3.9 mmol/L (3.5-4.5)
[2022-11-22 10:21] LABS: CALCIUM 8.1 mg/dL (8.4-10.2); CREATININE, serum 1.38 mg/dL (0.72-1.25); POTASSIUM 3.7 mmol/L (3.5-4.5)
[2022-11-22 14:37] LABS: CALCIUM 8.4 mg/dL (8.4-10.2); CREATININE, serum 1.35 mg/dL (0.72-1.25); POTASSIUM 3.7 mmol/L (3.5-4.5)
--- NOTE | 2022-11-22 18:46 | NUR ---
Pt had uneventful shift, rested between distrubances. pt on and off insulin gtt per protocol. pt recieved NS boluses per Dr. Connell orders. D5 1/2 restarted at 250 after completion of boluses. Pt c/o nasuea x1 and treated with zofran. ADA diet ordered for pt, pt tolerating diet without complaints. Pt voiding via urinal with no issues. Call light within reach, able to make needs known.
[2022-11-22 19:00] LABS: CALCIUM 7.6 mg/dL (8.4-10.2); CREATININE, serum 1.19 mg/dL (0.72-1.25); POTASSIUM 3.8 mmol/L (3.5-4.5)
--- NOTE | 2022-11-22 19:14 | NUR ---
RECEIVED REPORT FROM DAY SHIFT NURSE ABHILASH FREDERICK. PT IS RESTING IN BED WITH CALL LIGHT WITHIN REACH. PT HAS INSULIN RUNNING AT 2 UNITS/HR AND D5 1/2 NS GOING AT 250 ML/HR. PT'S VITALS ARE STABLE AT THIS TIME.
--- NOTE | 2022-11-22 21:08 | NUR ---
PT IS ALERT AND ORIENTED X4. PT DENIES PAIN, HEADACHE, FEELING DIZZY AND LIGHTHEADED, AND NAUSEA. 2000 VITALS ARE STABLE.
[2022-11-22 22:41] LABS: CALCIUM 7.3 mg/dL (8.4-10.2); CREATININE, serum 1.16 mg/dL (0.72-1.25); POTASSIUM 3.3 mmol/L (3.5-4.5)
[2022-11-23] VITALS (487 sets, daily range): BP systolic 106–146; BP diastolic 64–76; PULSE 57–69; TEMP 97.5–98.6; O2SAT 69–100
[2022-11-23 02:40] LABS: CALCIUM 7.8 mg/dL (8.4-10.2); CREATININE, serum 1.19 mg/dL (0.72-1.25); POTASSIUM 3.5 mmol/L (3.5-4.5)
--- NOTE | 2022-11-23 03:11 | NUR ---
BLOOD SUGAR DROPPED FROM 153 TO 102. INSULIN DRIP PUT ON HOLD PER PROTOCOL AND WILL RECHECK BLOOD SUGAR AT 0330.
--- NOTE | 2022-11-23 03:36 | NUR ---
INSULIN IS STILL ON HOLD PER PROTOCOL. BLOOD SUGAR WAS 103. WILL RECHECK AT 0400.
--- NOTE | 2022-11-23 04:17 | NUR ---
BLOOD SUGAR IS 125. RESUME INSULIN DRIP AT RATE OF 1.5 UNITS/HOUR PER PROTOCOL.
[2022-11-23 05:30] LABS: HEMATOCRIT 45.8 % (42.0-52.0); MEAN CORPUSCULAR HGB CONC 34 g/dl (33.0-37.0); MEAN PLATELET VOLUME 8.9 fl (7.4-10.4); PLATELET COUNT 159 K/mm3 (130-400); RED BLOOD COUNT 5.11 M/mm3 (4.20-5.60); REDCELL DISTRIBUTION WIDTH-CV 14.2 % (11.5-14.5)
[2022-11-23 05:32] LABS: HEMOGLOBIN 15.6 g/dl (13.5-18.0); MEAN CELL VOLUME 90 fl (80.0-100.0); MEAN CORPUSCULAR HEMOGLOBIN 31 pg (27-31)
[2022-11-23 05:44] LABS: CALCIUM 7.8 mg/dL (8.4-10.2); CREATININE, serum 1.13 mg/dL (0.72-1.25); POTASSIUM 3.6 mmol/L (3.5-4.5)
--- NOTE | 2022-11-23 06:18 | NUR ---
PT HAD AN UNEVENTFUL NIGHT. PT HAS BEEN RESTING WITH CALL LIGHT WITHIN REACH. PT'S VITALS HAVE BEEN STABLE THROUGHOUT THE NIGHT. WILL GIVE REPORT TO DAY SHIFT NURSE.
--- NOTE | 2022-11-23 08:45 | NUR ---
Patient sleeps between disturbances. Alert and oriented X 4 upon awakening. Pleasant and cooperative with staff. Denies any concerns or complaints at this time and stated to this nurse that he is feeling "good enough to golf". Assisted with a bed bath and am care. Call light left within reach. Will continue to monitor.
--- NOTE | 2022-11-23 12:45 | NUR ---
Pt to room 307 on medical floor, oriented to room & call light system. A&Ox4, LCTA, RRR, IV sites in L and R wrist intact, BSx4, RAD/PED pulses strong. Denies c/o pain at this time. Med rec completed. Call light within reach.
--- NOTE | 2022-11-23 14:38 | NUR ---
Initial visit: Dinkey Operator Slag stopped by room on rounds. Pt was resting with by his side. Pt has no needs right now. Pt and appreciated the visit. Dinkey Operator Slag will follow up as needed.
--- NOTE | 2022-11-23 20:40 | NUR ---
Pt lying in bed watching tv upon this nurse's entry to room. A&OX4. PM scheduled medications admin w/o difficulty. Shift assessment performed. Respirations even and unlabored on room air. Heart sounds RRR. Abd rounded and soft. BLE have mild edema w/o pitting. Pt denies SOA, dyspnea, nausea, vomitting, pain, lightheadedness, or dizziness. No needs or concerns voiced. Call light in reach.
[2022-11-24 03:55] VITALS: BP 140/63; PULSE 63; TEMP 98.2
--- NOTE | 2022-11-24 05:36 | NUR ---
Pt has been monitored throughout night by this nurse. No adverse events over night. Pt has rested soundly w/ eyes closed in bed. Respirations are even and unlabored on room air. No signs of distress noted. Call light in reach.
--- NOTE | 2022-11-24 06:55 | NUR ---
bedside shift report received from JOHNY Knox
[2022-11-24 08:02] VITALS: BP 148/75; PULSE 59; TEMP 97.7
[2022-11-24 08:09] VITALS: BP_SYST 148
--- NOTE | 2022-11-24 08:40 | NUR ---
resting in bed with at bedside, had breakfast and tolerated well, full assessment completed, see interventions for further info, asking about being discharged and informed Dr would probably be around soon, no open areas to feet and skin is intact, spoke to him about making juan pablo if he ever has any sores to feet to notify physician ALICIA, verbalizes understanding
[2022-11-24 09:10] LABS: CALCIUM 8.2 mg/dL (8.4-10.2); CREATININE, serum 0.83 mg/dL (0.72-1.25); MAGNESIUM 1.8 mg/dL (1.6-2.6); POTASSIUM 3.6 mmol/L (3.5-4.5)
--- NOTE | 2022-11-24 09:25 | NUR ---
Dr Connell in to see patient, will plan discharge
--- NOTE | 2022-11-24 10:05 | NUR ---
up and dressed for discharge, discharge instructions given to patient and his , verbalizes understanding,
--- NOTE | 2022-11-24 10:15 | NUR ---
discharged per WC
== END 2022-11-24 10:15 | disposition home or self-care (01) | DRG 638 ==
LOC: COL.ER 23:38 → ICU 11-22 03:13 → MEDICAL 11-23 12:44
PROVIDERS: Personal Emergency Response Attendant; Physician Assistant; ADMIT Internal Medicine
DX: E11.10 Type 2 diabetes mellitus with ketoacidosis without coma (principal); N17.9 Acute kidney failure, unspecified; E86.0 Dehydration; E03.9 Hypothyroidism, unspecified; N40.0 Benign prostatic hyperplasia without lower urinary tract symptoms; K21.9 Gastro-esophageal reflux disease without esophagitis; F32.A Depression, unspecified; E11.40 Type 2 diabetes mellitus with diabetic neuropathy, unspecified; F10.90 Alcohol use, unspecified, uncomplicated; G25.81 Restless legs syndrome; G89.29 Other chronic pain; I10 Essential (primary) hypertension; K52.9 Noninfective gastroenteritis and colitis, unspecified; Z88.1 Allergy status to other antibiotic agents; Z88.0 Allergy status to penicillin; Z88.8 Allergy status to other drugs, medicaments and biological substances; Z87.442 Personal history of urinary calculi; Z98.52 Vasectomy status; Z23 Encounter for immunization
CPT/HCPCS: C9113; J1644; J1815; J2405; J3480; J7030

== ENCOUNTER → 2023-04-07 | Outpatient (CLI) | payer MEDICARE, BC ==
[~2023-04-07] MED LIST changes: +ASPIRIN 81M81 MG/TA2 PO; +BENADRYL50 MG PO; +HCTZ12.5TAB PO; +MAG-OX 400400 MG/TAB PO; +MAGNESIUM200 MG; +MELATONIN5 M1 PO; +MOBIC15 MG PO; +MOTRIN 800800 MG/TAB PO; +REGLAN 5MG T5 MG/TAB PO; +TRULICITY1.5 MG/0.5; +TRULICITY1.5 MG/0.5 SQ; +VALERIAN ROOT; +ZANAFLEX2 MG PO; +ZOFRAN ODT4 MG PO
== END ==
LOC: MHCPAIN 07:49
DX: M47.812 Spondylosis without myelopathy or radiculopathy, cervical region (principal); M54.12 Radiculopathy, cervical region
CPT/HCPCS: J0461; J1040; J1100; Q9967

== ENCOUNTER → 2023-04-26 | Outpatient (CLI) | payer MEDICARE, BC | LOC: MHCPAIN 12:29 | DX: M47.812 Spondylosis without myelopathy or radiculopathy, cervical region (principal); M54.2 Cervicalgia; M48.02 Spinal stenosis, cervical region; E11.9 Type 2 diabetes mellitus without complications; Z79.4 Long term (current) use of insulin | CPT/HCPCS: G0463 ==

== ENCOUNTER 2023-04-29 13:57 | Emergency (ER) | payer MEDICARE, BC ==
[~2023-04-29] VITALS: Ht 172.7 cm; Wt 80.9 kg
[2023-04-29 14:15] VITALS: TEMP 98.1
[2023-04-29] MEDS ORDERED: MOTRIN 800800 MG/TAB PO (15:20)
[2023-04-29 15:39] VITALS: BP 131/78; PULSE 61
== END 2023-04-29 15:39 | disposition home or self-care (01) ==
LOC: COL.ER 13:57
DX: M54.2 Cervicalgia (principal); G89.29 Other chronic pain
CPT/HCPCS: J2270

== ENCOUNTER → 2023-06-30 | Outpatient (CLI) | payer MEDICARE, BC | LOC: MHCPAIN 10:01 | DX: M47.812 Spondylosis without myelopathy or radiculopathy, cervical region (principal) | CPT/HCPCS: J0665 ==

== ENCOUNTER → 2023-08-02 | Outpatient (CLI) | payer MEDICARE, BC | LOC: MHCPAIN 11:55 | DX: M47.812 Spondylosis without myelopathy or radiculopathy, cervical region (principal); M48.02 Spinal stenosis, cervical region | CPT/HCPCS: G0463 ==

== ENCOUNTER → 2023-08-18 | Outpatient (CLI) | payer MEDICARE, BC ==
[~2023-08-18] MED LIST changes: +Atropine 1 MG/10 ML SYRINGE IV ONE; +ePHEDrine 50 MG/10 ML VIAL IV ONE
== END ==
LOC: MHCPAIN 07:22
DX: M47.812 Spondylosis without myelopathy or radiculopathy, cervical region (principal); M54.2 Cervicalgia
CPT/HCPCS: J0461; J0665

== ENCOUNTER → 2023-08-22 | Outpatient (CLI) | payer MEDICARE, BC ==
[~2023-08-22] MED LIST changes: -Atropine 1 MG/10 ML SYRINGE IV ONE; -ePHEDrine 50 MG/10 ML VIAL IV ONE
== END ==
LOC: MHCPAIN 10:48
DX: M48.02 Spinal stenosis, cervical region (principal); M47.812 Spondylosis without myelopathy or radiculopathy, cervical region; E11.9 Type 2 diabetes mellitus without complications; Z79.4 Long term (current) use of insulin
CPT/HCPCS: G0463

== ENCOUNTER 2023-09-08 13:03 | Inpatient (IN) | payer MEDICARE, BC ==
[~2023-09-08] VITALS: Ht 177.8 cm; Wt 87.5 kg
[2023-09-08] MEDS ORDERED: Naloxone 0.4 MG/ML VIAL IV ONE (13:16)
[2023-09-08] MEDS ORDERED: NS 1,000 ML IV ONE (13:30)
[2023-09-08 15:29] LABS: ALBUMIN 3.5 gm/dL (3.4-4.8); BILIRUBIN,TOTAL 0.3 mg/dL (0.2-1.2); CALCIUM 8.8 mg/dL (8.4-10.2); CREATININE, serum 0.87 mg/dL (0.72-1.25); POTASSIUM 3.9 mmol/L (3.5-4.5); TOTAL PROTEIN 5.8 gm/dL (6.2-8.1)
[2023-09-08 15:34] LABS: BASO # 0.1 K/mm3 (0.0-0.2); BASO % 0.8 % (0.0-2.0); EOS # 0.2 K/mm3 (0.0-0.7); EOS % 2.7 % (0.0-4.0); GRAN % 47.3 % (42.2-75.2); HEMATOCRIT 43.3 % (42.0-52.0); HEMOGLOBIN 14.9 g/dl (13.5-18.0); LYMPH # 2.6 K/mm3 (1.2-3.4); LYMPH % 40.7 % (20.0-51.0); MEAN CELL VOLUME 90 fl (80.0-100.0); MEAN CORPUSCULAR HEMOGLOBIN 31 pg (27-31); MEAN CORPUSCULAR HGB CONC 34 g/dl (33.0-37.0); MEAN PLATELET VOLUME 9.9 fl (7.4-10.4); MONO # 0.5 K/mm3 (0.1-0.6); MONO % 8.2 % (1.7-9.3); PLATELET COUNT 163 K/mm3 (130-400); RED BLOOD COUNT 4.82 M/mm3 (4.20-5.60); REDCELL DISTRIBUTION WIDTH-CV 13.2 % (11.5-14.5)
[2023-09-08 16:38] LABS: ARTERIAL BLD GAS O2 SATURATION 87.8 % (92-100); ARTERIAL BLD GAS TCO2 CT 24.1; ARTERIAL BLOOD GAS BASE EXCESS -3.2 (-2-2); ARTERIAL BLOOD GAS HCO3 22.7 meq/L (22-26); ARTERIAL BLOOD GAS PCO2 43.8 mmHg (35-45); ARTERIAL BLOOD GAS PO2 59.6 mmHg (80-100); ARTERIAL BLOOD GAS pH 7.33 (7.35-7.45)
[2023-09-08] MEDS ORDERED: ATARAX50 MG PO (16:40)
[2023-09-08] MEDS ORDERED: NAPROSYN500 MG PO (16:42)
[2023-09-08] MEDS ORDERED: Dextrose 50% Water 25 GM/50 ML SYRINGE IV ONE (16:45)
[2023-09-08] MEDS ORDERED: LIORESAL 1010 MG/TAB PO (16:51)
[2023-09-08] MEDS ORDERED: WELLBUTRIN XL300 M1 PO (16:54)
[2023-09-08] MEDS ORDERED: LANTUS SOLOS100 U/ML SQ (16:59)
[2023-09-08] MEDS ORDERED: NOVOLOG FLEX100 U/ML SQ (17:00)
[2023-09-08 17:30] VITALS: BP_SYST 124
--- NOTE | 2023-09-08 17:30 | NUR ---
PT ON THE FLOOR VIA STRETCHER. AT BEDSIDE WITH BELONGINGS. PT ON BIPAP AND RESPONSIVE TO PHYSICAL STIMULATION FOR SHORT PERIODS OF TIME. PT CHANGED INTO FALL RISK GOWN. NO SKIN ISSUES NOTED. PTS NOT SURE OF MEDS PT TAKES AND PT UNABLE TO ASSESS AT THIS TIME. INT TO LEFT WRIST. FAMILY DENIES NEEDS AT THIS TIME. BED IN LOWEST POSITION, CALL LIGHT IN REACH, BED ALARM ON
[2023-09-08] MEDS ORDERED: Dextrose 50% Water 25 GM/50 ML SYRINGE IV PRN (18:30)
[2023-09-08] MEDS ORDERED: Dextrose (Glucose) 15 GM (4 x 3.75 GM) Chewable TABLET PACK PO PRN (18:30)
[2023-09-08] MEDS ORDERED: Glucagon 1 MG VIAL IM PRN (18:30)
--- NOTE | 2023-09-08 19:00 | NUR ---
Report recievied from ABHILASH Jones.
[2023-09-08] MEDS ORDERED: Naproxen 250 MG TAB PO PRN (19:15)
[2023-09-08] MEDS ORDERED: Acetaminophen 500 MG TAB PO PRN (19:15)
[2023-09-08] MEDS ORDERED: Polyethylene Glycol 3350 17 GM PDS PO PRN (19:15)
[2023-09-08] MEDS ORDERED: Ondansetron 4 MG/2 ML VIAL IV PRN (19:15)
[2023-09-08 19:39] VITALS: BP 137/71; PULSE 88; TEMP 97.2
--- NOTE | 2023-09-08 20:00 | NUR ---
Patient resting in bed with family at bedside. Patient is arousable but lethargic. Patient is oriented x3, was able to tell me everything but stated he thought it was 2022. Patient kept falling back asleep when trying to ask questions. Denies any pain or needs at this time. Bipap on. Assessment complete. IV in left wrist flushes easily with no complicaitons. Call light and personal items in reach. Bed in low position and bed alarm on.
[2023-09-08 21:00] VITALS: BP_SYST 129
[2023-09-08] MEDS ORDERED: Insulin Lispro (HumaLOG) SQ SCH (21:00)
[2023-09-08] MEDS ORDERED: Gabapentin 300 MG CAP PO SCH (21:00)
[2023-09-08 22:35] VITALS: BP 119/73; PULSE 84; TEMP 97.2
[2023-09-09] VITALS (12 sets, daily range): BP systolic 119–147; BP diastolic 67–87; PULSE 58–73; TEMP 96.9–98.4
--- NOTE | 2023-09-09 02:10 | NUR ---
Patient off Bipap at this time. Oxygen saturation holding above 95% on room air. Vitals cart with pulse ox attached.
--- NOTE | 2023-09-09 05:45 | NUR ---
Patient resting in bed with at bedside. Denies any pain or needs at this time. Patient came off of Bipap about 0200 and has been stating mid 90s on RA. TELE called and notified this nurse that he flipped into a junctional rhythm about 0500, leads all in correct place. Hospitalist Kennedy notified, EKG ordered. Patient is more alert and oriented this morning. Call light and personal items in reach. Bed in low position and bed alarm on.
[2023-09-09 06:52] LABS: BASO % 0.6 % (0.0-2.0); EOS # 0.1 K/mm3 (0.0-0.7); EOS % 1.9 % (0.0-4.0); GRAN # 4.9 K/mm3 (1.4-6.5); GRAN % 71.2 % (42.2-75.2); HEMATOCRIT 40.4 % (42.0-52.0); LYMPH # 1.4 K/mm3 (1.2-3.4); LYMPH % 20.3 % (20.0-51.0); MEAN CELL VOLUME 88 fl (80.0-100.0); MEAN CORPUSCULAR HEMOGLOBIN 31 pg (27-31); MEAN CORPUSCULAR HGB CONC 35 g/dl (33.0-37.0); MEAN PLATELET VOLUME 10.3 fl (7.4-10.4); MONO # 0.4 K/mm3 (0.1-0.6); MONO % 5.7 % (1.7-9.3); PLATELET COUNT 148 K/mm3 (130-400); RED BLOOD COUNT 4.57 M/mm3 (4.20-5.60); REDCELL DISTRIBUTION WIDTH-CV 13.2 % (11.5-14.5)
[2023-09-09 07:05] LABS: CALCIUM 8.7 mg/dL (8.4-10.2); CREATININE, serum 0.98 mg/dL (0.72-1.25); MAGNESIUM 1.1 mg/dL (1.6-2.6); POTASSIUM 3.9 mmol/L (3.5-4.5)
[2023-09-09] MEDS ORDERED: buPROPion XL (24-HR) 150 MG TAB PO SCH (09:00)
[2023-09-09] MEDS ORDERED: Sertraline 50 MG TAB PO SCH (09:00)
--- NOTE | 2023-09-09 09:14 | NUR ---
Initial visit; Patient thanked [employer] for looking in on him and offering God's blessings and continued good health. His was present and asked that you keep her in [employer]'s prayers along with Fidel. [employer] will do so.
--- NOTE | 2023-09-09 09:15 | NUR ---
PT LAYING IN BED UPON ENTERING, AT BEDSIDE. ASSESMENT DONE, MEDS GIVEN PER ORDER. PT DENIES PAIN AT THIS TIME. PT UNSURE WHAT MEDS HE TOOK YESTERDAY BUT ABLE TO UPDATE MED REC. INT TO LEFT WRIST PATENT. BED IN LOWEST POSITION, CALL LIGHT IN REACH, BED ALARM ON.
[2023-09-09] MEDS ORDERED: Magnesium Sulfate 4 GM/50 ML IV SOLN IV SCH (10:30)
--- NOTE | 2023-09-09 11:23 | NUR ---
MAG STARTED PER ORDER IN LEFT WRIST INT. ELECTRICAL SERVICE TECHNICIAN AT BEDSIDE.
[2023-09-09 11:30] LABS: ARTERIAL BLD GAS O2 SATURATION 93.5 % (92-100); ARTERIAL BLD GAS TCO2 CT 22.1; ARTERIAL BLOOD GAS BASE EXCESS -2.4 (-2-2); ARTERIAL BLOOD GAS HCO3 21.1 meq/L (22-26); ARTERIAL BLOOD GAS PCO2 32.6 mmHg (35-45); ARTERIAL BLOOD GAS pH 7.43 (7.35-7.45)
[2023-09-09] MEDS ORDERED: Insulin Lispro (HumaLOG) SQ SCH ×2 (12:00→18:00)
--- NOTE | 2023-09-09 12:45 | NUR ---
Cost Accounting Analyst met with patient and Nadiya ([phone]) to discuss discharge planning. Patient and live in [place] and have patient's elderly father living with them. Patient sees Dr. Mann as his PCP and uses [facility]. Patient states his only DME is a CPAP and BIPAP but he uses neither one at home. Patient denies any discharge needs at this time. Plan is to return home when medically stable. Discharge: Home
--- NOTE | 2023-09-09 15:50 | NUR ---
HOSPITALIST NOTIFIED THIS NURSE THAT PER PTS ARIES HIS BLOOD SUGAR IS 100. HOSPITALIST GAVE THIS NURSE A VERBAL ORDER TO FOLLOW PROTOCOL AND GIVE D50. THIS NURSE VERBALIZED UNDERSTANDING AND NOTIFIED HOSPITALIST OF 24 UNITS GIVEN BEFORE LUNCH PER MAR FOR A BLOOD SUGAR OF 218. NO OTHER ORDERS AT THIS TIME
[2023-09-09 18:41] LABS: COLLECTION METHOD CLEAN CATCH
[2023-09-09 18:52] LABS: PH 5.5 (5.0-8.5); URINE APPEARANCE CLEAR (CLEAR/HAZY); URINE BLOOD NEGATIVE (NEGATIVE); URINE COLOR YELLOW (YELLOW); URINE GLUCOSE TRACE (NEGATIVE); URINE KETONE NEGATIVE (NEGATIVE); URINE NITRATE NEGATIVE (NEGATIVE); URINE PROTEIN(semi-quant) NEGATIVE (NEGATIVE); URINE UROBILINOGEN 0.2 E.U/dL (0.2-1.0)
[2023-09-09 18:59] LABS: TRICYCLIC ANTIDEPRESS URINE NEGATIVE (NEGATIVE)
--- NOTE | 2023-09-09 19:10 | NUR ---
REPORT GIVEN TO ABHILASH NEWTON
--- NOTE | 2023-09-09 20:50 | NUR ---
Patient resting in bed. Denies any pain or needs at this time. Assessment complete. IV in left wrist flushes easiy with no complications. Call light an personal items in reach. Bed in low position and bed alarm on.
[2023-09-09] MEDS ORDERED: Insulin Glargine-ygfn (Lantus) SQ SCH ×2 (21:00)
[2023-09-10] VITALS (7 sets, daily range): BP systolic 134–171; BP diastolic 83–89; PULSE 58–68; TEMP 98–98.3
--- NOTE | 2023-09-10 04:00 | NUR ---
Hospitalist Kennedy contacted and notified that patient had a low blood sugar of 42 @2030 last night and dextrose tabs were given. Patient stated he did not want all of his long acting insulin due to the hypoglycemia episode and only wanted 10 units. Hospitalist stated that it was okay he only got the 10 units of the long acting last night and requested a blood sugar level at this time. Blood sugar was 195.
--- NOTE | 2023-09-10 06:00 | NUR ---
Patient resting in bed. States his pain is better. Denies any needs at this time. Patient had an episode of hypoglycemia around 2030 last night where sugar dropped to 42, glucose tabs given and sugar came up to 138. Pepsi and pudding also provided. Call light and personal items in reach. Bed in low position and bed alarm on.
[2023-09-10 07:20] LABS: CALCIUM 8.9 mg/dL (8.4-10.2); CREATININE, serum 1.13 mg/dL (0.72-1.25); MAGNESIUM 1.7 mg/dL (1.6-2.6); POTASSIUM 3.7 mmol/L (3.5-4.5)
--- NOTE | 2023-09-10 07:43 | NUR ---
THIS NURSE NOTIFIED HOSPITALIST OF PTS BP 171/89, NO SCHEDULED OR PRN BP MEDS ON AUG. HOSPITALIST GAVE THIS NURSE A VERBAL ORDER FOR 10MG IV HYDRALAZINE. THIS NURSE VERBALIZED UNDERSTANDING. THIS NURSE ALSO NOTIFIED HOSPITALIST THAT SCHEDULED AND SLIDING SCALE INSULIN WILL BE HELD THIS MORNING DUE TO PTS LOW BLOOD SUGARS YESTERDAY EVENING AFTER SCHEDULED INSULIN GIVEN. NO OTHER ORDERS AT THIS TIME
[2023-09-10] MEDS ORDERED: hydrALAZINE 20 MG/ML 1 ML VIAL IV ONE (08:00)
--- NOTE | 2023-09-10 08:30 | NUR ---
PT LAYING IN BED UPON ENTERING, AT BEDSIDE. ASSESSMENT DONE, MEDS GIVEN PER ORDER. ONE TIME HYDRALAZINE GIVEN. PT DENIES PAIN. INT TO LEFT WRIST PATENT. PT EDUCATED ON INSULIN CHANGES AND VERBALIZED UNDERSTANDING. ARIES TO LEFT UPPER ARM. PT DENIES NEEDS. BED IN LOWEST POSITION, CALL LIGHT IN REACH, BED ALARM ON.
[2023-09-10] MEDS ORDERED: Insulin Glargine-ygfn (Lantus) SQ SCH (09:00)
[2023-09-10] MEDS ORDERED: Insulin Lispro (HumaLOG) SQ SCH (12:00)
--- NOTE | 2023-09-10 15:05 | NUR ---
report given to rosaline, rn
[2023-09-10] MEDS ORDERED: LANTUS SOLOS100 U/ML SQ (16:10)
[2023-09-10] MEDS ORDERED: NOVOLOG FLEX100 U/ML SQ (16:11)
--- NOTE | 2023-09-10 16:31 | NUR ---
ALL DISCHARGE INSTRUCTION AND EDUCATION PROVIDED AND DISCUSSED WITH PATIENT. IV ACCESS AND TELEMETRY MONITORING DISCONTINUED. ALL QUESTIONS ANSWERED TO PATIENT'S SATISFACTION. PATIENT AMBULATING INDEPENDANTLY AND ESCORTED TO HOSPITAL EXIT.
== END 2023-09-10 16:15 | disposition home or self-care (01) | DRG 91 ==
LOC: COL.ER 13:03 → MEDICAL 15:46
PROVIDERS: Personal Emergency Response Attendant; ADMIT Internal Medicine
PROC: 5A09357 Assistance with Respiratory Ventilation, Less than 24 Consecutive Hours, Continuous Positive Airway Pressure (ICD-10-PCS; principal; 2023-09-08)
DX: G92.8 Other toxic encephalopathy (principal); J96.01 Acute respiratory failure with hypoxia; E11.40 Type 2 diabetes mellitus with diabetic neuropathy, unspecified; I10 Essential (primary) hypertension; G89.29 Other chronic pain; M54.2 Cervicalgia; N40.0 Benign prostatic hyperplasia without lower urinary tract symptoms; G47.00 Insomnia, unspecified; E11.649 Type 2 diabetes mellitus with hypoglycemia without coma; T50.995A Adverse effect of other drugs, medicaments and biological substances, initial encounter; K21.9 Gastro-esophageal reflux disease without esophagitis; F32.A Depression, unspecified; E03.9 Hypothyroidism, unspecified; Z88.1 Allergy status to other antibiotic agents; Z88.0 Allergy status to penicillin; Z88.8 Allergy status to other drugs, medicaments and biological substances; Z79.4 Long term (current) use of insulin; Z79.899 Other long term (current) drug therapy; Z79.890 Hormone replacement therapy; Z23 Encounter for immunization
CPT/HCPCS: J0360; J1650; J1815; J2310; J3475; J7030

== ENCOUNTER → 2023-10-06 | Outpatient (CLI) | payer MEDICARE, BC ==
[~2023-10-06] MED LIST changes: +ATARAX50 MG PO; +LANTUS SOLOS100 U/ML SQ; +LIORESAL 1010 MG/TAB PO; +Lidocaine PF 2% (20 MG/ML) 5 ML VIAL ONE; +Midazolam 2 MG/2 ML VIAL ONE; +NAPROSYN500 MG PO; +fentaNYL 50 MCG/ML 2 ML VIAL ONE
== END ==
LOC: MHCPAIN 12:10
DX: M47.812 Spondylosis without myelopathy or radiculopathy, cervical region (principal); M54.2 Cervicalgia
CPT/HCPCS: J0665; J2250; J3010

== ENCOUNTER → 2024-02-28 | Outpatient (CLI) | payer MEDICARE, BC ==
[~2024-02-28] MED LIST changes: -Lidocaine PF 2% (20 MG/ML) 5 ML VIAL ONE; -Midazolam 2 MG/2 ML VIAL ONE; -fentaNYL 50 MCG/ML 2 ML VIAL ONE
== END ==
LOC: MHCPAIN 09:33
DX: M48.02 Spinal stenosis, cervical region (principal); M41.22 Other idiopathic scoliosis, cervical region; M47.812 Spondylosis without myelopathy or radiculopathy, cervical region; K31.84 Gastroparesis; E11.9 Type 2 diabetes mellitus without complications; Z79.4 Long term (current) use of insulin; E03.9 Hypothyroidism, unspecified
CPT/HCPCS: G0463

== ENCOUNTER → 2024-03-30 | Outpatient (CLI) | payer MEDICARE, BC | LOC: MHCPAIN 10:00 | DX: M54.12 Radiculopathy, cervical region (principal); M41.82 Other forms of scoliosis, cervical region; M47.812 Spondylosis without myelopathy or radiculopathy, cervical region; M48.02 Spinal stenosis, cervical region; Z98.1 Arthrodesis status; E11.9 Type 2 diabetes mellitus without complications; Z79.4 Long term (current) use of insulin; E03.9 Hypothyroidism, unspecified; K31.84 Gastroparesis | CPT/HCPCS: G0463 ==